=== PATIENT | female | born 1985 | race Caucasian/White ===

== ENCOUNTER 2019-03-01 02:56 | Emergency (ER) | payer MEDICAID ==
[~2019-03-01] VITALS: Ht 165.1 cm; Wt 72.6 kg
[2019-03-01 02:57] VITALS: Ht 165.1 cm; Wt 72.6 kg
[2019-03-01 05:13] VITALS: BP 125/87
== END 2019-03-01 05:13 | disposition home or self-care (01) ==
LOC: ED 02:56
DX: J45.901 Unspecified asthma with (acute) exacerbation (principal)
CPT/HCPCS: J7512; J7620

== ENCOUNTER 2019-04-17 01:41 | Inpatient (IN) | payer MEDICAID ==
[~2019-04-17] VITALS: Ht 165.1 cm; Wt 72.6 kg
[2019-04-17 01:48] VITALS: Ht 165.1 cm; Wt 72.6 kg
--- NOTE | 2019-04-17 01:49 | NUR ---
RT AT BEDSIDE FOR BREATHING TX.
--- NOTE | 2019-04-17 01:51 | NUR ---
PT BIBA TO ED S/P ASTHMA ATTACK WHILE AT HOME. PER MEDIC, PT USED HER ALBUTEROL NEBULIZER WITH NO RELIEF AND CALLED 911. PT NOTED TO BE TRIPODING, AUDIBLE WHEEZES NOTED. PT MOVING ALL EXTREMITIES APPROPRIATELY, SKIN COLOR NORMAL FOR ETHNICITY. PT ABLE TO NOD TO ANSWER QUESTIONS. PER MEDIC, ASTHMA ATTACK OCCURRED WITH SUDDEN ONSET. PT PLACED ON FULL LABEL CODER AND PULSE OX. RT AT BEDSIDE TO INITIATE TX. PT AAOX4. WILL CONTINUE TO MONITOR.
--- NOTE | 2019-04-17 01:54 | NUR ---
DR. BERMAN AT BEDSIDE.
--- NOTE | 2019-04-17 01:59 | NUR ---
RT AT BEDSIDE FOR SECOND TX.
--- NOTE | 2019-04-17 02:10 | NUR ---
PT MEDICATED PER MD ORDER. PT NODDED AGREEMENT AND UNDERSTANDING OF MEDICATIONS PRIOR TO ADMINISTRATION. LAB AT BEDSIDE FOR BLOOD CULTURE COLLECTION.
--- NOTE | 2019-04-17 02:16 | NUR ---
WITH PT MOVEMENT, IV WAS NOTED TO BE OUT OF PLACE, ANGIOCATH INTACT. QUARTER SIZE INFILTRATION NOTED TO RIGHT HAND, PRESSURE APPLIED, NO ACTIVE BLEEDING NOTED. WILL ATTEMPT TO ESTABLISH IV ACCESS AGAIN.
--- NOTE | 2019-04-17 02:28 | NUR ---
DR. BERMAN AT BEDSIDE TO RE-EVALUATE PT.
[2019-04-17 02:44] LABS: BASOPHIL % 0.3 % (0-2); RED CELL DISTRIBUTION WIDTH 12.4 % (11.5-14.5)
[2019-04-17 02:46] LABS: PLATELET COUNT 489 x10^3mcL (130-400)
--- NOTE | 2019-04-17 02:48 | NUR ---
XRAY AT BEDSIDE.
[2019-04-17 03:01] LABS: CALCIUM 8.6 mg/dL (8.5-10.1); CARBON DIOXIDE 32.2 mmol/L (21-32); CHLORIDE SERUM 108 mmol/L (98-107); CREATININE SERUM 0.7 mg/dL (0.6-1.0); GFR1 > 60 mL/min; GLUCOSE SERUM 140 mg/dL (74-106); POTASSIUM SERUM 3.8 mmol/L (3.5-5.1); SODIUM SERUM 147 mmol/L (136-145)
[2019-04-17 03:07] LABS: ALBUMIN 3.6 g/dL (3.4-5.0); ALKALINE PHOSPHATASE 57 U/L (46-116); ALT/SGPT 22 U/L (14-59); AST/SGOT 14 U/L (15-37); BILIRUBIN TOTAL 0.1 mg/dL (0.20-1.00); TOTAL PROTEIN, SERUM 6.8 g/dL (6.4-8.2)
--- NOTE | 2019-04-17 03:07 | NUR ---
AT BEDSIDE WITH PT. PT PROVIDED WITH PILLOWS TO ELEVATE HOB INTO HIGH HECTOR'S.
--- NOTE | 2019-04-17 04:13 | NUR ---
DR. BERMAN AT BEDSIDE SPEAKING WITH PT ABOUT CARE. PT IS AWAKE AND ALERT.
--- NOTE | 2019-04-17 04:22 | NUR ---
PT ASSISTED TO BEDPAN TO PROVIDE URINE SAMPLE. PT IS VERBALLY RESPONSIVE AND REPORTS SHE "FEELS A LITTLE BIT BETTER". NAD NOTED.
[2019-04-17] MEDS ORDERED: ALBUTEROL0.63 MG/3 (04:26)
--- NOTE | 2019-04-17 04:38 | NUR ---
REPORT GIVEN TO [facility] TO ASSUME CARE OF PT.
--- NOTE | 2019-04-17 04:54 | NUR ---
PT SLEEPING IN [facility], GOOD CHEST RISE AND FALL NOTED, NAD NOTED AT THIS TIME. AWAITING ORDER FOR ROCEPHIN FROM DR. BERMAN. CALL LIGHT IN REACH. PT'S AT BEDSIDE.
[2019-04-17 05:00] LABS: CHOLESTEROL/HDL RATIO 2.9
[2019-04-17 05:02] LABS: T3 TOTAL 1.35 ng/mL
--- NOTE | 2019-04-17 05:07 | NUR ---
PT MEDICATED PER MD ORDER. PT VERBALIZED UNDERSTANDING OF MEDICATION PRIOR TO ADMINISTRATION.
[2019-04-17 05:10] LABS: FREE T4 0.74 ng/dL (0.76-1.46); FREE THYROXINE INDEX 1.6 ug/dL (1.4-4.5); T4(THYROXINE) 5.3 ug/dL (4.7-13.3)
[2019-04-17 05:21] VITALS: BP 118/101
--- NOTE | 2019-04-17 05:45 | NUR ---
PT RECIEVED FROM ED VIA GUERNEY ACCOMPANIED BY NURSE. PT AMBULATED TO BED. PT A/O X4, CALM AND COOPERATIVE. DENIES DIZZINESS AND SZ HX. TELE 33, STA. DENEIS CP, NV, DIZZINESS, OR PALPATATIONS. PALAPBLE PULSES, NO EDEMA NOTED AT THIS TIME. BREATHING EVEN AND LABORED ON 2L NC. PT UNABLE TO TAKE A DEEP BREATH AT THIS TIME. IS TEACHING DONE AND AT BEDSIDE. ABD SOFT AND ROUND, DENIES PAIN OR DISCOMFORT TO PALPATION. PT AMBULATORY AT BASELINE. BED AT LOWEST POSITION. CALL LIGHT WITHIN REACH. WILL CONTINUE TO MONITOR.
--- NOTE | 2019-04-17 06:00 | NUR ---
PT COMPLAINING OF A HEADACHE AT THIS TIME. MEDICATED WITH PRN TYLENOL.
[2019-04-17 06:03] VITALS: BP 142/86
--- NOTE | 2019-04-17 06:21 | NUR ---
PT RESTING IN BED AT THIS TIME. NO SIGNS OF ACUTE DISTRESS NOTED. BREATHING EVEN AND LABORED ON 2L NC. ALL NEEDS AND CONCERNS ADDRESSED. WILL ENDORSE TO DAY NURSE.
[2019-04-17 07:02] LABS: microscopic required? NO
[2019-04-17 07:31] LABS: UA SPECIFIC GRAVITY >=1.030 (1.005-1.035); urine erythrocyte NEGATIVE (NEGATIVE)
[2019-04-17 07:58] LABS: AMPHETAMINE QUAL UR NONE DETECTED (See below)
[2019-04-17 09:01] VITALS: BP 139/85
--- NOTE | 2019-04-17 10:55 | NUR ---
ALERT AND ORIENTED TIMES 4. TELE 33. ST 107. LUNGS WITH EXPIRATORY WHEEZES BILATERALLY. O2 SAT 2L NC 95%. BS ACTIVE TIMES 4. HAD BM THIS AM. MOVES EXTREMITIES STRONG. BRP. PERIPHERAL PULSES PALPABLE. NO EDEMA. IV SITE CLEAN AND INTACT. SALINE LOCKED. DENIES SOB. DENIES PAIN OR DISCOMFORT.
[2019-04-17 13:54] VITALS: BP 126/73
--- NOTE | 2019-04-17 14:25 | NUR ---
PT COMPLAINED OF HEADACHE AT THIS TIME. WILL GIVE TYLENOL FOR HEADACHE.
[2019-04-17 16:57] VITALS: BP 131/80
--- NOTE | 2019-04-17 18:28 | NUR ---
AAO TIMES 4. TELE 33 S[place] HR 100. DENIES SOB. O2 SAT 94% 2L NC. BRP SELF WITHOUT DIFFICULTY. IV SITE CLEAN, DRY, PATENT. PLEASANT AND COOPERATIVE. PATIENT IS SITTING UP ON BED TEXTING ON PHONE.
--- NOTE | 2019-04-17 19:30 | NUR ---
PT RECIEVED FROM DAY NURSE. PT RESTING IN BED AT THIS TIME. DENIES PAIN OR DISCMFORT. A/O X4, CALM AND COOPERATIVE AT THIS TIME. TELE 33, STA. DENIES CP, NV, DIZZINESS, OR PALPATATIONS. PALPABLE PULSES, NO EDEMA NOTED AT THIS TIME. REATHIGN E/U ON 2L NC. ABD SOFT AND ROUND, DENIES PAIN TO PALPATION. IV TO LAC, CDI. BED AT LOWEST POSITION. CALL LIGHT WITHIN REACH. WILL CONTINUE.
[2019-04-17 21:19] VITALS: BP 140/79
--- NOTE | 2019-04-18 | NUR ---
PT RESTING IN BED AT THIS TIME. DENIES PAIN OR DISCOMFORT. BREATHING E/U ON 2L NC. NO SIGNS OF ACUTE DISTRESS NOTED. BED AT LOWEST POSITION. CALL LIGHT WITHIN REACH. WILL CONTINUE TO MONITOR.
[2019-04-18 05:55] VITALS: BP 113/63
--- NOTE | 2019-04-18 06:14 | NUR ---
PT RESTING IN BED AT THIS TIME. COMPLAINING OF SORE THROAT. MEDICATED WITH PRN CEPACOL. BREATHING E/U ON 2L NC. DENIES ANY OTHER PAIN OR DISCOMFORT AT THIS TIME. BED AT LOWEST POSITION. CALL LIGHT WITHIN REACH. WILL ENDORSE TO DAY NURSE.
--- NOTE | 2019-04-18 07:15 | NUR ---
RECEIVED PT FROM ZI RN. PT AMBULATORY TO RESTROOM GAIT STEADY. C/O SOB WITH EXERTION/AMBULATION ON ROOM AIR. O2 SAT 97%. PLACED ON 1LNC. NO S/S OF ACUTE DISTRESS. DENIES CHEST PAIN. NSR ON TELE, HR 86. AMBULATORY WITH FULL ROM. GAIT STEADY. NO S/S OF ACUTE RESPIRATORY DISTRESS. IV WNL TO LAC, PATENT AND FLUSHES WELL. IVF FLOWING. BED IN LOW POSITION. CALL LIGHT WITHIN REACH. INSTRUCTED TO USE CALL LIGHT TO CALL FOR ASSISTANCE PRN. PT VERBALIZED UNDERSTANDING. WILL CONT. TO MONITOR.
[2019-04-18 07:51] LABS: RED CELL DISTRIBUTION WIDTH 13.9 % (11.5-14.5)
[2019-04-18 08:17] LABS: BASOPHIL % 0 % (0-2); PLATELET COUNT 459 x10^3mcL (130-400)
--- NOTE | 2019-04-18 08:18 | NUR ---
WBC 20.3 DR. AN AWARE. NO CHANGE IN ORDERS AT THIS TIME. PT ON SOLUMEDROL. NO S/S OF ACUTE DISTRESS. NO N/V. NO CHILLS. NO FEVER. VS STABLE. WILL CONT. TO MONITOR.
[2019-04-18 08:23] VITALS: BP 127/76
[2019-04-18 08:23] LABS: CALCIUM 9.4 mg/dL (8.5-10.1); CARBON DIOXIDE 24.3 mmol/L (21-32); CHLORIDE SERUM 106 mmol/L (98-107); CREATININE SERUM 0.9 mg/dL (0.6-1.0); GFR1 > 60 mL/min; GLUCOSE SERUM 120 mg/dL (74-106); MAGNESIUM 2.1 mg/dL (1.8-2.4); SODIUM SERUM 143 mmol/L (136-145)
--- NOTE | 2019-04-18 11:04 | NUR ---
PT LAYING IN BED. AA/OX4. DENIES SOB ON 1LNC. NO CHEST PAIN. CALM/COOPERATIVE. NO N/V. IV WNL TO LAC, PATENT AND FLUSHES WELL. SALINE LOCKED. BED IN LOW POSITION. CALL LIGHT WITHIN REACH. WILL CONT. TO MONITOR.
[2019-04-18 12:40] VITALS: BP 125/73
--- NOTE | 2019-04-18 17:12 | NUR ---
Discount pharmacy card and list to low cost medical clinics given to patient by Bill Rivas.
[2019-04-18 17:21] VITALS: BP 136/86
--- NOTE | 2019-04-18 18:23 | NUR ---
PT LAYING IN BED. NO S/S OF ACUTE DISTRESS. DENIES SOB ON ROOM AIR. O2 SAT 96%. RR EVEN/UNLABORED. CHEST EXPANSION SYMMETRICAL. NSR ON TELE, HR 98. NO CHEST PAIN. TOLERATING REGULAR DIET WELL. NO N/V/D. AMBULATORY WITH FULL ROM, GAIT STEADY. IV WNL TO LAC, PATENT AND FLUSHES WELL. SALINE LOCKED. BED IN LOW POSITION. CALL LIGHT WITHIN REACH. WILL ENDORSE TO ONCOMING SHIFT.
--- NOTE | 2019-04-18 19:50 | NUR ---
PT,S IN BED NO RESP DISTRESS NOTED , ON TELE NUMBER 33 THAT SHOWS NSR HR 89, HL TO LAC INTACT FLUSHING WELL . CALL LIGHT WITHIN PT'S REACH , WILL CON'T TO MONITOR AND ASSIST PT WITH CARE
[2019-04-18 19:51] VITALS: BP 119/73
--- NOTE | 2019-04-19 03:15 | NUR ---
PT;S IN BED WITH EYES CLOSED , TELE NSR HR 88
--- NOTE | 2019-04-19 05:26 | NUR ---
I HAVE REVIEWED THE DATA COLLECTION BY RETAIL TEAM LEADER (NAME):ROXY BLISS ENTERED ON (DATE/TIME): I CONCUR WITH THE DATA AND ANY EXCEPTIONS OR COMMENTS ARE LISTED BELOW:
[2019-04-19 05:55] VITALS: BP 102/54
--- NOTE | 2019-04-19 06:28 | NUR ---
NO CHANGES OF CONDITION NOTED, ALL DUE MEDS GIVEN NO REACTION NOTED, HL INTACT FLUSHING WELL . TELE ST 102.
[2019-04-19 07:05] LABS: RED CELL DISTRIBUTION WIDTH 13.7 % (11.5-14.5)
[2019-04-19 07:16] LABS: CARBON DIOXIDE 25.9 mmol/L (21-32); CHLORIDE SERUM 104 mmol/L (98-107); CREATININE SERUM 0.7 mg/dL (0.6-1.0); GFR1 > 60 mL/min; GLUCOSE SERUM 112 mg/dL (74-106); MAGNESIUM 2.1 mg/dL (1.8-2.4); PHOSPHOROUS 4.1 mg/dL (2.5-4.9); SODIUM SERUM 138 mmol/L (136-145)
--- NOTE | 2019-04-19 07:25 | NUR ---
RECEIVED PT FROM [facility] [employer]. PT AA/OX4 LAYING IN BED. DENIES SOB ON ROOM AIR AT THIS TIME. O2 SAT 93%. RR EVEN/UNLABORED. CHEST EXPANSION SYMMETRICAL. NO CHEST PAIN. NSR ON TELE. HR 81. NO N/V. NO CHILLS. NO FEVER. CALM/COOPERATIVE. IV WNL TO LAC, PATENT AND FLUSHES WELL. SALINE LOCKED. INSTRUCTED TO USE CALL LIGHT TO CALL FOR ASSISTANCE PRN. PT VERBALIZED UNDERSTANDING. WILL CONT. TO MONITOR.
[2019-04-19 07:36] LABS: BASOPHIL % 0 % (0-2); PLATELET COUNT 429 x10^3mcL (130-400)
[2019-04-19 08:10] VITALS: BP 128/85
[2019-04-19 12:06] VITALS: BP 126/71
[2019-04-19] MEDS ORDERED: MEDDP PO ×2 (14:58→15:46)
[2019-04-19 15:18] VITALS: BP 126/71
--- NOTE | 2019-04-19 16:08 | NUR ---
PT BEING DISCHARGED TO HOME. AWAKE, ALERT, ORIENTED X4. DENIES SOB ON ROOM AIR. O2 SAT 97%. RR EVEN/UNLABORED. CHEST EXPANSION SYMMETRICAL. DENIES CHEST PAIN. NSR ON TELE. TELE REMOVED. PULSE OX REMOVED. NO S/S OF ACUTE DISTRESS. NO N/V. SPEECH CLEAR. NO CHILLS. NO YANG. NO DIZZINESS. CALM/COOPERATIVE. DISCHARGE EDUCATION PROVIDED TO PATIENT. INSTRUCTED TO FOLLOW UP WITH PCP WITHIN 3 DAYS PER PHYSICIAN INSTRUCTION. PT VERBALIZED UNDERSTANDING. IV REMOVED FROM LAC, CATHETER IN TACT. PRESSURE APPLIED. SITE WNL. BELONGINGS WITH PATIENT. PT WAITING FOR RIDE HOME. WILL MONITOR.
--- NOTE | 2019-04-19 16:15 | NUR ---
TAKEN TO DISCHARGE LOBBY BY RAISSA NEFF. AMBULATORY WITH FULL ROM. GAIT STEADY.
== END 2019-04-19 16:11 | disposition home or self-care (01) | DRG 141 ==
LOC: ED 01:41 → DU 04:21
PROVIDERS: Emergency Medicine; ADMIT Internal Medicine
DX: J45.901 Unspecified asthma with (acute) exacerbation (principal); E87.0 Hyperosmolality and hypernatremia; E87.8 Other disorders of electrolyte and fluid balance, not elsewhere classified; D72.829 Elevated white blood cell count, unspecified; E78.5 Hyperlipidemia, unspecified; J20.9 Acute bronchitis, unspecified
CPT/HCPCS: 84439; 94150; G0378; J0696; J1956; J2920; J2930; J3475; J7050; J7060; J7620; Q0092

== ENCOUNTER 2019-06-10 22:23 | Emergency (ER) | payer MEDICAID ==
[~2019-06-10] VITALS: Ht 165.1 cm; Wt 80.3 kg
[~2019-06-10 22:23] MED LIST: ALBUTEROL0.63 MG/3; MEDDP PO
[2019-06-10 22:39] VITALS: Ht 165.1 cm; Wt 80.3 kg
[2019-06-11 01:43] VITALS: BP 112/76
== END 2019-06-11 01:38 | disposition home or self-care (01) ==
LOC: ED 22:23
DX: J45.901 Unspecified asthma with (acute) exacerbation (principal); R03.0 Elevated blood-pressure reading, without diagnosis of hypertension
CPT/HCPCS: J7512; J7613; J7644

== ENCOUNTER 2019-09-20 15:59 | Emergency (ER) | payer OTHER, SELFPAY ==
[~2019-09-20] VITALS: Ht 165.1 cm; Wt 81.6 kg
[2019-09-20 16:08] VITALS: Ht 165.1 cm; Wt 81.6 kg
[2019-09-20 19:50] VITALS: BP 122/74
== END 2019-09-20 19:50 | disposition home or self-care (01) ==
LOC: ED 15:59
DX: J45.901 Unspecified asthma with (acute) exacerbation (principal)
CPT/HCPCS: J1100; J1200; J7030; J7613; J7644

== ENCOUNTER 2020-01-31 11:26 | Emergency (ER) | payer OTHER ==
[~2020-01-31] VITALS: Ht 165.1 cm; Wt 81.2 kg
[2020-01-31 11:43] VITALS: Ht 165.1 cm; Wt 81.2 kg
[2020-01-31 12:59] VITALS: BP 128/90
== END 2020-01-31 13:00 | disposition home or self-care (01) ==
LOC: ED 11:26
DX: J45.901 Unspecified asthma with (acute) exacerbation (principal)
CPT/HCPCS: J7512

== ENCOUNTER 2020-02-13 09:58 | Emergency (ER) | payer OTHER ==
[~2020-02-13] VITALS: Ht 165.1 cm; Wt 81.6 kg
[2020-02-13 10:00] VITALS: Ht 165.1 cm; Wt 81.6 kg
[2020-02-13 14:30] VITALS: BP 116/82
== END 2020-02-13 14:30 | disposition home or self-care (01) ==
LOC: ED 09:58
DX: J45.901 Unspecified asthma with (acute) exacerbation (principal)
CPT/HCPCS: J2930; J3475; J7613; Q0092; U0003-CS

== ENCOUNTER 2020-03-05 23:59 | Emergency (ER) | payer OTHER ==
[~2020-03-05] VITALS: Ht 165.1 cm; Wt 82.6 kg
[2020-03-06 00:04] VITALS: Ht 165.1 cm; Wt 82.6 kg
[2020-03-06 01:10] VITALS: BP 118/77
== END 2020-03-06 01:10 | disposition home or self-care (01) ==
LOC: ED 23:59
DX: J45.901 Unspecified asthma with (acute) exacerbation (principal)
CPT/HCPCS: J7512; Q0092